=== PATIENT | female | born 1950 | race Caucasian/White ===

== ENCOUNTER 2025-04-17 07:51 | Day surgery (SDC) | payer MEDICARE, OTHER ==
[2025-04-17] MEDS ORDERED: Sodium Chloride 0.9% 10 ML Syringe FLUSH PRN (08:00)
[2025-04-17] MEDS: Lactated Ringers 1,000 ML IV SCH (08:12)
[2025-04-17] MEDS ORDERED: Propofol 200 MG/20 ML SDV ONE (09:02)
[2025-04-17] MEDS ORDERED: Midazolam 1 MG/ML 2 ML SDV ONE (09:02)
[2025-04-17 12:29] VITALS: BP 128/76; PULSE 81
== END 2025-04-17 11:30 | disposition home or self-care (01) ==
LOC: KA.SDS 07:51
PROVIDERS: ATTEND Family Medicine
DX: Z12.11 Encounter for screening for malignant neoplasm of colon (principal); D12.2 Benign neoplasm of ascending colon; K63.5 Polyp of colon; K64.8 Other hemorrhoids; K64.4 Residual hemorrhoidal skin tags; K57.30 Diverticulosis of large intestine without perforation or abscess without bleeding; I10 Essential (primary) hypertension; E66.9 Obesity, unspecified; E78.2 Mixed hyperlipidemia; Z88.8 Allergy status to other drugs, medicaments and biological substances; Z68.30 Body mass index [BMI] 30.0-30.9, adult; Z79.899 Other long term (current) drug therapy; Z87.891 Personal history of nicotine dependence; Z86.0101 Personal history of adenomatous and serrated colon polyps
CPT/HCPCS: 00811; 88305; 99100; J2250; J2704; J7120